=== PATIENT | female | born 1995 | race African-American/Black ===

== ENCOUNTER 2018-07-01 19:29 | Emergency (ER) | payer OTHER ==
[~2018-07-01] VITALS: Ht 160 cm; Wt 102.5 kg
[2018-07-01 19:53] VITALS: BP 134/77
== END 2018-07-01 20:15 | disposition home or self-care (01) ==
LOC: ER 19:30
DX: J02.0 Streptococcal pharyngitis (principal)
CPT/HCPCS: 99283; A4606

== ENCOUNTER 2018-07-14 18:46 | Emergency (ER) | payer OTHER ==
[~2018-07-14] VITALS: Ht 157.5 cm; Wt 102.5 kg
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
[2018-07-14 19:38] VITALS: BP 136/81
--- NOTE | 2018-07-14 20:20 | NUR ---
URINE COLLECTED AND SENT TO LAB
--- NOTE | 2018-07-14 20:56 | NUR ---
PT TAKEN TO RADIOLOGY VIA [facility]
--- NOTE | 2018-07-14 21:18 | NUR ---
PT RETURNED FROM RADIOLOGY. PT TOLERATED WELL.
--- NOTE | 2018-07-14 22:45 | NUR ---
Patient discharged to home in stable condition. Written and verbal after care instructions given. Patient verbalizes understanding of instruction. PT AMBULATORY WITH STEADY GAIT ACCOMPANIED BY FAMILY.
== END 2018-07-14 22:47 | disposition home or self-care (01) ==
LOC: ER 18:49
DX: S52.592A Other fractures of lower end of left radius, initial encounter for closed fracture (principal); S52.591A Other fractures of lower end of right radius, initial encounter for closed fracture; S00.83XA Contusion of other part of head, initial encounter; W05.2XXA Fall from non-moving motorized mobility scooter, initial encounter; Y93.55 Activity, bike riding; Y92.89 Other specified places as the place of occurrence of the external cause; Y99.8 Other external cause status
CPT/HCPCS: 70450-TC; 72125-TC; 73110; 84703-TC